=== PATIENT | male | born 1945 | race Caucasian/White ===

== ENCOUNTER → 2018-04-17 09:30 | Outpatient (CLI) | payer OTHER, SELFPAY | PROVIDERS: PCP Emergency Medicine; Visit Provider Orthopaedic Surgery | DX: M17.11 Unilateral primary osteoarthritis, right knee (principal) | CPT/HCPCS: 20610; 99213; J1040 ==

== ENCOUNTER 2018-05-02 11:28 | Outpatient (RCR) | payer SELFPAY | END 2018-05-02 23:59 | disposition home or self-care (01) | LOC: CR 11:28 | PROVIDERS: PCP Emergency Medicine; Visit Provider Family Medicine | DX: Z51.89 Encounter for other specified aftercare (principal) | CPT/HCPCS: S9472 ==

== ENCOUNTER 2018-05-30 13:16 | Outpatient (RCR) | payer SELFPAY | END 2018-06-01 23:59 | disposition home or self-care (01) | LOC: CR 13:16 | PROVIDERS: PCP Emergency Medicine; Visit Provider Family Medicine | DX: Z51.89 Encounter for other specified aftercare (principal) | CPT/HCPCS: S9472 ==

== ENCOUNTER 2018-07-02 07:00 | Outpatient (RCR) | payer SELFPAY | END 2018-07-02 23:59 | disposition home or self-care (01) | LOC: CR 07:00 | PROVIDERS: PCP Emergency Medicine; Visit Provider Family Medicine | DX: Z51.89 Encounter for other specified aftercare (principal) | CPT/HCPCS: S9472 ==

== ENCOUNTER → 2018-07-17 09:12 | Outpatient (BNVA) | payer OTHER, SELFPAY | PROVIDERS: PCP Emergency Medicine; Visit Provider Orthopaedic Surgery | DX: M17.11 Unilateral primary osteoarthritis, right knee (principal); I10 Essential (primary) hypertension | CPT/HCPCS: 20610; 99211; 99213; J1040 ==

== ENCOUNTER 2018-07-30 07:00 | Outpatient (RCR) | payer SELFPAY | END 2018-08-01 23:59 | disposition home or self-care (01) | LOC: CR 07:00 | PROVIDERS: PCP Emergency Medicine; Visit Provider Family Medicine | DX: Z51.89 Encounter for other specified aftercare (principal) | CPT/HCPCS: S9472 ==

== ENCOUNTER 2018-09-01 12:47 | Outpatient (RCR) | payer SELFPAY | END 2018-09-01 23:59 | disposition home or self-care (01) | LOC: CR 12:47 | PROVIDERS: PCP Emergency Medicine; Visit Provider Family Medicine | DX: Z51.89 Encounter for other specified aftercare (principal) | CPT/HCPCS: S9472 ==

== ENCOUNTER 2018-10-01 07:00 | Outpatient (RCR) | payer SELFPAY | END 2018-10-02 23:59 | disposition home or self-care (01) | LOC: CR 07:00 | PROVIDERS: PCP Emergency Medicine; Visit Provider Family Medicine | DX: Z51.89 Encounter for other specified aftercare (principal) | CPT/HCPCS: S9472 ==

== ENCOUNTER → 2018-10-14 09:38 | Outpatient (BNVA) | payer OTHER, SELFPAY | PROVIDERS: PCP Emergency Medicine; Referring Provider Emergency Medicine; Visit Provider Orthopaedic Surgery | DX: M17.11 Unilateral primary osteoarthritis, right knee (principal) | CPT/HCPCS: 20610; 99211; 99213; J7325 ==

== ENCOUNTER 2018-10-29 07:00 | Outpatient (RCR) | payer SELFPAY | END 2018-10-30 23:59 | disposition home or self-care (01) | LOC: CR 07:00 | PROVIDERS: PCP Emergency Medicine; Visit Provider Family Medicine | DX: Z51.89 Encounter for other specified aftercare (principal) | CPT/HCPCS: S9472 ==

== ENCOUNTER 2018-11-28 12:44 | Outpatient (RCR) | payer SELFPAY | END 2018-11-30 23:59 | disposition home or self-care (01) | LOC: CR 12:44 | PROVIDERS: PCP Emergency Medicine; Visit Provider Family Medicine | DX: Z51.89 Encounter for other specified aftercare (principal) | CPT/HCPCS: S9472 ==

== ENCOUNTER 2018-12-29 11:50 | Outpatient (RCR) | payer SELFPAY | END 2018-12-30 23:59 | disposition home or self-care (01) | LOC: CR 11:50 | PROVIDERS: PCP Emergency Medicine; Visit Provider Family Medicine | DX: Z51.89 Encounter for other specified aftercare (principal) | CPT/HCPCS: S9472 ==

== ENCOUNTER → 2019-01-13 09:12 | Outpatient (BNVA) | payer OTHER, SELFPAY | PROVIDERS: PCP Emergency Medicine; Referring Provider Emergency Medicine; Visit Provider Orthopaedic Surgery | DX: M17.11 Unilateral primary osteoarthritis, right knee (principal) | CPT/HCPCS: 20610; 99211; 99212; J1040 ==

== ENCOUNTER 2019-01-30 11:56 | Outpatient (RCR) | payer SELFPAY | END 2019-01-30 23:59 | disposition home or self-care (01) | LOC: CR 11:56 | PROVIDERS: PCP Emergency Medicine; Visit Provider Family Medicine | DX: Z51.89 Encounter for other specified aftercare (principal) | CPT/HCPCS: S9472 ==

== ENCOUNTER 2019-02-27 11:28 | Outpatient (RCR) | payer SELFPAY | END 2019-03-01 23:59 | disposition home or self-care (01) | LOC: CR 11:28 | PROVIDERS: PCP Emergency Medicine; Visit Provider Family Medicine | DX: Z51.89 Encounter for other specified aftercare (principal) | CPT/HCPCS: S9472 ==

== ENCOUNTER 2019-03-02 08:05 | Outpatient (CLI) | payer OTHER, SELFPAY ==
[2019-03-02 09:42] LABS: CREATININE 0.77 mg/dL (0.70-1.30); Calculated LDL 121 mg/dL; Cholesterol 193 mg/dL (50-200); HDL Cholesterol 66 mg/dL (40-60); Triglyceride 30 mg/dL (30-150)
== END 2019-03-02 08:25 ==
PROVIDERS: Nurse Practitioner Family; PCP Emergency Medicine; Visit Provider Emergency Medicine
DX: E78.5 Hyperlipidemia, unspecified (principal); M54.30 Sciatica, unspecified side
CPT/HCPCS: 36415; 80061; 83721; 82565

== ENCOUNTER 2019-03-04 00:49 | Outpatient (CLI) | payer OTHER, SELFPAY ==
[2019-03-04] MEDS: Normal Saline Flush 10 ML SYR IVP (09:40)
[2019-03-04] MEDS: Gadoterate meglumine 20 ML VIAL IVP (09:41)
--- NOTE | 2019-03-04 09:56 | DI.MRI_ITS ---
SYMPTOM/DIAGNOSIS: SCIATICA, H/O LAMINECTOMY LUMBAR SPINE MRI: T 2 sagittal, T 1 sagittal, T 1 sagittal STIR, T 1 sagittal fat sat, T 1 axial fat sat, T 1 axial, T 2 axial and T 1 sagittal fat sat and T 1 axial fat sat post sequences were performed. The examination is compared with a prior study of 09/23/15. Diminished disc signal is noted at all levels and multi level disc space narrowing is identified. At L 1-2, there is a mild disc bulge. No focal herniation is seen. Facet joint DJD is evident and there is perhaps mild central spinal stenosis. No significant foraminal stenosis is identified. At L 2-3, again noted is a disc bulge. No marielos herniation is identified. Facet joint DJD is evident. There is no significant central or neural foraminal stenosis. At L 3-4, a disc bulge is identified. Degenerative bony changes are seen and facet joint DJD is apparent. Also there is some prominence of the ligamentum flavum. There is no evidence of significant central or foraminal stenosis. At L 4-5, a disc bulge is identified. No focal disc herniation is seen. There are severe facet joint degenerative changes at this level and prominence of the ligamentum flavum is noted resulting in moderate central and bilateral foraminal stenosis, right more severe than left. At L 5-S 1, a small disc bulge is apparent. There are severe facet joint degenerative changes and no evidence of a focal disc herniation. There is no evidence of significant foraminal stenosis at this level. SUMMARY: Findings consistent with degenerative disc disease and DJD with evidence of spinal stenosis, most prominent at L 4-5. There has been little interval change when compared with a prior examination.
== END 2019-03-04 01:09 ==
PROVIDERS: PCP Emergency Medicine; Visit Provider Nurse Practitioner Family
DX: M51.16 Intervertebral disc disorders with radiculopathy, lumbar region (principal); M47.27 Other spondylosis with radiculopathy, lumbosacral region; M48.07 Spinal stenosis, lumbosacral region
CPT/HCPCS: 72158

== ENCOUNTER 2019-03-23 14:45 | Outpatient (CLI) | payer OTHER, SELFPAY ==
--- NOTE | 2019-03-23 14:03 | DI.RAD_ITS ---
SYMPTOM/DIAGNOSIS: KNEE PAIN LEFT KNEE: Three views. No priors. There is moderate narrowing of the lateral femoral tibial joint space. There is periarticular spurring seen in the lateral femoral tibial joint and patella femoral joint. A small suprapatellar joint effusion is seen. The bones are intact and normally mineralized. Vascular calcifications are present in the soft tissues IMPRESSION: Mild degenerative changes of the left knee.
--- NOTE | 2019-03-23 14:03 | DI.RAD_ITS ---
SYMPTOM/DIAGNOSIS: KNEE PAIN. RIGHT KNEE: Three views. Comparison 12/16/13 Since the prior examination there has been progression of degenerative changes. There is marked narrowing of the lateral femoral tibial joint space. Periarticular spurring is seen involving all three joint compartments. The bones are intact and normally mineralized. There is a suprapatellar joint effusion. Vascular calcifications are present. IMPRESSION: Moderately severe degenerative changes of the right knee.
== END 2019-03-23 15:05 ==
PROVIDERS: PCP Emergency Medicine; Referring Provider Emergency Medicine; Visit Provider Student in an Organized Health Care Education/Training Program
DX: M25.561 Pain in right knee; M25.562 Pain in left knee; M17.0 Bilateral primary osteoarthritis of knee; M54.16 Radiculopathy, lumbar region
CPT/HCPCS: 73562; 99203; 99214

== ENCOUNTER 2019-03-31 08:57 | Outpatient (CLI) | payer OTHER, SELFPAY ==
--- NOTE | 2019-03-31 06:00 | DI.RAD_ITS ---
SYMPTOM/DIAGNOSIS: LUMBAR RADICULOPATHY PAIN CLINIC: Fluoroscopy Time: 55.45 Fluoroscopy was utilized by Dr. Brand during the performance of an epidural steroid injection. Please refer to the procedure report for complete details.
[2019-03-31 09:14] VITALS: BP 103/69; PULSE 65; RESP 18; TEMP 36.1; O2SAT 97
[2019-03-31] MEDS: methylPREDNISolone ACETATE 40 MG/ML VIAL IJ (10:02)
[2019-03-31] MEDS: Omnipaque 240 MG/ML 50 ML BTL IJ (10:04)
[2019-03-31 10:14] VITALS: BP 122/64; PULSE 63; RESP 16; O2SAT 99
--- NOTE | 2019-03-31 10:14 | PDOC.PAIN ---
Pain Clinic Procedure Note Current Active Problems Problem Status Onset Lumbosacral radiculopathy Primary osteoarthritis of left knee CAUDAL EPIDURAL STEROID WITH CATHETER INJECTION PROCEDURE NOTE COMMENTS: He is status-post lumbar surgery and that is why we are using the caudal approach.. KINJAL WILLIAMSON has been referred to the [facility] for lumbar epidural steroid injection. Patient was greeted by the nurse who verified patients name and . Patient was then taken to the fluoroscopy suite. Patient was interviewed and the medical record reviewed. There were no medical, pharmacologic, radiographic, or other structural contraindications to attempting fluoroscopically guided lumbar epidural steroid injection. Risks and expected side effects as well as potential benefits of the procedure were reviewed and voiced concerns addressed. The patient consent form was signed and witnessed. Standard time-out procedure was performed. Patient was placed in the prone position on the fluoroscopy table and automated blood pressure cuff and pulse oximeter applied. The skin entry point for entering/approaching the epidural space at the sacral hiatus and marked. Following thorough chlorhexadine preparation of the skin and draping and 1% lidocaine infiltration of the skin entry point and subcutaneous tissues, a 17 gauge Touhy needle was placed under fluoroscopic guidance and with loss of resistance technique into the epidural space. Needle tip placement and depth were aided and confirmed by fluoroscopy. There was no paresthesia or return of blood or CSF through the needle. An Arrow cath was thread to the L5-S1 level and 1 cc's of Omnipaque 240 was injected with clear epidural spread confirmed with fluoroscopy. 80mg depomedrol was injected. There was not any unusual discomfort expressed. Vital signs were stable throughout the procedure and were as recorded in nursing records. Follow up plans and appointments were discussed.Post procedure instruction was given as documented in nursing records and having met discharge criteria and was discharged from the [facility]. COMMENTS: If this procedure is effective, it can be completed up to 3 time per 12 months.
== END 2019-03-31 09:17 ==
PROVIDERS: PCP Emergency Medicine; Visit Provider Preventive Medicine Occupational Medicine
DX: M54.17 Radiculopathy, lumbosacral region (principal); M17.12 Unilateral primary osteoarthritis, left knee
CPT/HCPCS: 62323; 72100; J1030; Q9967

== ENCOUNTER 2019-04-01 13:36 | Outpatient (RCR) | payer SELFPAY | END 2019-04-01 23:59 | disposition home or self-care (01) | LOC: CR 13:36 | PROVIDERS: PCP Emergency Medicine; Visit Provider Family Medicine | DX: Z51.89 Encounter for other specified aftercare (principal) | CPT/HCPCS: S9472 ==

== ENCOUNTER 2019-05-01 07:00 | Outpatient (RCR) | payer SELFPAY | END 2019-05-02 23:59 | disposition home or self-care (01) | LOC: CR 07:00 | PROVIDERS: PCP Emergency Medicine; Visit Provider Family Medicine | DX: Z51.89 Encounter for other specified aftercare (principal) | CPT/HCPCS: S9472 ==

== ENCOUNTER → 2019-05-18 08:28 | Outpatient (BNVA) | payer OTHER, SELFPAY | PROVIDERS: PCP Emergency Medicine; Referring Provider Emergency Medicine; Visit Provider Student in an Organized Health Care Education/Training Program | DX: M25.561 Pain in right knee (principal); M17.11 Unilateral primary osteoarthritis, right knee; M54.17 Radiculopathy, lumbosacral region; M25.562 Pain in left knee; M17.12 Unilateral primary osteoarthritis, left knee | CPT/HCPCS: 99213 ==

== ENCOUNTER 2019-06-01 07:00 | Outpatient (RCR) | payer SELFPAY | END 2019-06-01 23:59 | disposition home or self-care (01) | LOC: CR 07:00 | PROVIDERS: PCP Emergency Medicine; Visit Provider Family Medicine | DX: Z51.89 Encounter for other specified aftercare (principal) | CPT/HCPCS: S9472 ==

== ENCOUNTER → 2019-06-29 08:20 | Outpatient (BNVA) | payer OTHER, SELFPAY | PROVIDERS: PCP Emergency Medicine; Referring Provider Emergency Medicine; Visit Provider Student in an Organized Health Care Education/Training Program | DX: M25.561 Pain in right knee (principal); M17.12 Unilateral primary osteoarthritis, left knee; M17.11 Unilateral primary osteoarthritis, right knee; M25.562 Pain in left knee | CPT/HCPCS: 99213 ==

== ENCOUNTER 2019-07-01 11:23 | Outpatient (RCR) | payer SELFPAY | END 2019-07-02 23:59 | disposition home or self-care (01) | LOC: CR 11:23 | PROVIDERS: PCP Emergency Medicine; Visit Provider Family Medicine | DX: Z51.89 Encounter for other specified aftercare (principal) | CPT/HCPCS: S9472 ==

== ENCOUNTER 2019-07-27 11:46 | Outpatient (RCR) | payer SELFPAY | END 2019-08-01 23:59 | disposition home or self-care (01) | LOC: CR 11:46 | PROVIDERS: PCP Emergency Medicine; Visit Provider Family Medicine | DX: Z51.89 Encounter for other specified aftercare (principal) | CPT/HCPCS: S9472 ==

== ENCOUNTER 2019-08-11 09:45 | Emergency (ER) | payer OTHER, SELFPAY ==
[2019-08-11 09:49] VITALS: BP 128/63; PULSE 67; RESP 16; TEMP 36.6; O2SAT 98
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
== END 2019-08-11 10:10 | disposition home or self-care (01) ==
LOC: ER 10:16
PROVIDERS: Emergency Provider Emergency Medicine; PCP Emergency Medicine
DX: T22.211A Burn of second degree of right forearm, initial encounter (principal); X15.0XXA Contact with hot stove (kitchen), initial encounter; I10 Essential (primary) hypertension
CPT/HCPCS: 16020

== ENCOUNTER 2019-08-31 14:41 | Outpatient (RCR) | payer SELFPAY | END 2019-09-01 23:59 | disposition home or self-care (01) | LOC: CR 14:41 | PROVIDERS: PCP Emergency Medicine; Visit Provider Family Medicine | DX: Z51.89 Encounter for other specified aftercare (principal) | CPT/HCPCS: S9472 ==

== ENCOUNTER 2019-10-02 07:00 | Outpatient (RCR) | payer SELFPAY | END 2019-10-02 23:59 | disposition home or self-care (01) | LOC: CR 07:00 | PROVIDERS: PCP Emergency Medicine; Visit Provider Family Medicine | DX: Z51.89 Encounter for other specified aftercare (principal) | CPT/HCPCS: S9472 ==

== ENCOUNTER 2019-10-07 02:25 | Outpatient (CLI) | payer OTHER, SELFPAY ==
--- NOTE | 2019-10-07 09:34 | DI.CT_ITS ---
EXAM: CT PELVIC WO CLINICAL HISTORY: right groin pain/workers comp, RT LOWER QUAD PAIN R10.31. TECHNIQUE: Imaging Protocol: Axial computed tomography images with coronal and sagittal reformatted images were created and reviewed. CONTRAST MATERIAL: Oral: No COMPARISON: No exams were available for comparison FINDINGS: Bladder: The urinary bladder is markedly distended. The dome of the bladder is not included on the e xamination. Reproductive organs: Unremarkable. Bowel: No obstruction or bowel wall thickening. Colonic diverticulosis. No evidence of acute diverti culitis. Peritoneal cavity: No ascites, collection or mesenteric inflammatory response. Inguinal: No evidence of an inguinal hernia or adenopathy. Bones: Degenerative changes in the lumbar spine. No acute fracture or dislocation. IMPRESSION: 1. Marked distension of the urinary bladder. 2. No evidence of an inguinal hernia or adenopathy. DATA REPOSITORY: All CT scans at this facility are submitted to the National Radiology Data Registry (NRDR) Dose Index Registry (DIR) with the [employer] (ACR). RADIATION OPTIMIZATION: All CT scans at this facility use at least one of these dose optimization te chniques: automated exposure control; mA and/or kV adjustment per patient size (includes targeted exa ms where dose is matched to clinical indication); or iterative reconstruction.
== END 2019-10-07 02:45 ==
PROVIDERS: PCP Emergency Medicine; Visit Provider Surgery
DX: R10.31 Right lower quadrant pain (principal); N32.89 Other specified disorders of bladder; K57.30 Diverticulosis of large intestine without perforation or abscess without bleeding
CPT/HCPCS: 72192

== ENCOUNTER 2019-10-28 11:15 | Outpatient (RCR) | payer SELFPAY | END 2019-10-31 23:59 | disposition home or self-care (01) | LOC: CR 11:15 | PROVIDERS: PCP Emergency Medicine; Visit Provider Family Medicine | DX: Z51.89 Encounter for other specified aftercare (principal) | CPT/HCPCS: S9472 ==

== ENCOUNTER 2019-11-06 13:38 | Outpatient (RCR) | payer SELFPAY | END 2019-12-01 23:59 | disposition home or self-care (01) | LOC: CR 13:38 | PROVIDERS: PCP Emergency Medicine; Visit Provider Family Medicine | DX: Z51.89 Encounter for other specified aftercare (principal) | CPT/HCPCS: S9472 ==

== ENCOUNTER 2020-03-07 02:07 | Outpatient (CLI) | payer OTHER, SELFPAY ==
[2020-03-07 10:19] LABS: Anion Gap 9.4 mmol/L (3-11); BUN 13 mg/dL (7-18); CO2 24.6 mmol/L (21.0-32.0); CREATININE 0.83 mg/dL (0.70-1.30); Calcium 8.5 mg/dL (8.5-10.1); Chloride 102 mmol/L (98-107); Cholesterol 183 mg/dL (<200); Glucose 100 mg/dL (74-106); HDL Cholesterol 75 mg/dL (40-60); Potassium 4.4 mmol/L (3.5-5.1); Sodium 136 mmol/L (136-145)
[2020-03-07 10:33] LABS: Triglyceride < 25 mg/dL (<150)
[2020-03-07 10:44] LABS: LDL CHOLESTEROL 95 mg/dL (<100)
== END 2020-03-07 02:27 ==
PROVIDERS: PCP Emergency Medicine; Visit Provider Emergency Medicine
DX: I10 Essential (primary) hypertension (principal); Z95.828 Presence of other vascular implants and grafts; Y78.8 Miscellaneous radiological devices associated with adverse incidents, not elsewhere classified
CPT/HCPCS: 36415; 80048; 80061; 83721

== ENCOUNTER 2021-02-28 08:00 | Outpatient (RCR) | payer SELFPAY ==
[2021-01-31 11:03] VITALS: BP 148/80; PULSE 96
[2021-02-02 08:07] VITALS: BP 121/78; PULSE 80
[2021-02-07 08:03] VITALS: BP 121/76; PULSE 73
[2021-02-09 07:58] VITALS: BP 151/80; PULSE 84
[2021-02-14 08:05] VITALS: BP 126/80; PULSE 85
[2021-02-16 08:00] VITALS: BP 110/72; PULSE 78
[2021-02-21 08:00] VITALS: BP 122/67; PULSE 68
[2021-02-23 08:02] VITALS: BP 115/75; PULSE 71
[2021-02-28 08:04] VITALS: BP 125/80; PULSE 70
== END 2021-03-01 23:59 | disposition home or self-care (01) ==
LOC: CR 08:00
PROVIDERS: PCP Emergency Medicine; Visit Provider Family Medicine
DX: Z51.89 Encounter for other specified aftercare (principal)

== ENCOUNTER 2021-03-28 08:00 | Outpatient (RCR) | payer OTHER, SELFPAY ==
[2021-03-02 00:25] VITALS: BP 125/80; PULSE 70
[2021-03-02 08:06] VITALS: BP 111/72; PULSE 65
[2021-03-07 08:05] VITALS: BP 136/83; PULSE 64; O2SAT 96
[2021-03-09 08:00] VITALS: BP 131/72
[2021-03-14 08:08] VITALS: BP 127/64; PULSE 68
[2021-03-21 08:07] VITALS: BP 122/77; PULSE 66
[2021-03-28 07:59] VITALS: BP 119/64; PULSE 65
== END 2021-04-01 23:59 | disposition home or self-care (01) ==
LOC: CR 08:00
PROVIDERS: PCP Emergency Medicine; Visit Provider Family Medicine
DX: Z51.89 Encounter for other specified aftercare (principal)

== ENCOUNTER 2021-05-02 08:00 | Outpatient (RCR) | payer SELFPAY ==
[2021-04-02 00:24] VITALS: BP 119/64; PULSE 65
[2021-04-11 08:42] VITALS: BP 136/77; PULSE 66
[2021-04-13 08:01] VITALS: BP 120/75; PULSE 65
[2021-04-20 08:13] VITALS: BP 115/73; PULSE 65
[2021-05-02 08:12] VITALS: BP 131/80; PULSE 67
== END 2021-05-02 23:59 | disposition home or self-care (01) ==
LOC: CR 08:00
PROVIDERS: PCP Emergency Medicine; Visit Provider Family Medicine

== ENCOUNTER 2021-06-01 08:00 | Outpatient (RCR) | payer SELFPAY ==
[2021-05-03 00:11] VITALS: BP 131/80; PULSE 67
[2021-05-04 08:37] VITALS: BP 152/82; PULSE 69
[2021-05-09 08:07] VITALS: BP 117/63; PULSE 75
[2021-05-11 08:02] VITALS: BP 111/63; PULSE 63
[2021-05-18 08:09] VITALS: BP 125/78; PULSE 65
[2021-05-23 07:59] VITALS: BP 124/85; PULSE 63
[2021-05-25 09:42] VITALS: BP 107/69; PULSE 63
[2021-05-30 08:04] VITALS: BP 129/77; PULSE 68
[2021-06-01 08:21] VITALS: BP 99/80; PULSE 73
[2021-06-06 08:54] VITALS: BP 133/81; PULSE 68
== END 2021-06-01 23:59 | disposition home or self-care (01) ==
LOC: CR 08:00
PROVIDERS: PCP Emergency Medicine; Visit Provider Family Medicine
DX: Z51.89 Encounter for other specified aftercare (principal)

== ENCOUNTER 2021-06-29 08:00 | Outpatient (RCR) | payer SELFPAY ==
[2021-06-02 00:07] VITALS: BP 99/80; PULSE 73
[2021-06-08 08:38] VITALS: BP 129/79; PULSE 66
[2021-06-13 08:14] VITALS: BP 146/79; PULSE 71
[2021-06-15 09:22] VITALS: BP 133/82; PULSE 68
[2021-06-20 08:02] VITALS: BP 124/75; PULSE 66
[2021-06-22 08:03] VITALS: BP 124/78; PULSE 78
[2021-06-27 07:59] VITALS: BP 127/77; PULSE 68
[2021-06-29 08:08] VITALS: BP 127/82; PULSE 73
== END 2021-07-02 23:59 | disposition home or self-care (01) ==
LOC: CR 08:00
PROVIDERS: PCP Emergency Medicine; Visit Provider Family Medicine
DX: Z51.89 Encounter for other specified aftercare (principal); R69 Illness, unspecified

== ENCOUNTER 2021-08-01 08:00 | Outpatient (RCR) | payer SELFPAY ==
[2021-07-03 00:06] VITALS: BP 127/82; PULSE 73
[2021-07-06 08:02] VITALS: BP 122/77; PULSE 70
[2021-07-11 08:09] VITALS: BP 127/79; PULSE 77
[2021-07-13 08:14] VITALS: BP 131/83; PULSE 67
[2021-07-20 08:01] VITALS: BP 120/73; PULSE 65
[2021-07-25 08:03] VITALS: BP 132/79; PULSE 71
[2021-08-01 09:31] VITALS: BP 108/74; PULSE 81
== END 2021-08-01 23:59 | disposition home or self-care (01) ==
LOC: CR 08:00
PROVIDERS: PCP Emergency Medicine; Visit Provider Family Medicine
DX: Z51.89 Encounter for other specified aftercare (principal)

== ENCOUNTER 2021-08-31 08:00 | Outpatient (RCR) | payer SELFPAY ==
[2021-08-02 00:02] VITALS: BP 108/74; PULSE 81
[2021-08-03 08:28] VITALS: BP 120/69; PULSE 71
[2021-08-15 08:42] VITALS: BP 123/78; PULSE 64
[2021-08-24 08:53] VITALS: BP 127/80; PULSE 73
[2021-08-29 08:03] VITALS: BP 115/75; PULSE 66
[2021-08-31 08:52] VITALS: BP 150/71; PULSE 71
== END 2021-09-01 23:59 | disposition home or self-care (01) ==
LOC: CR 08:00
PROVIDERS: PCP Emergency Medicine; Visit Provider Family Medicine
DX: Z51.89 Encounter for other specified aftercare (principal); R69 Illness, unspecified

== ENCOUNTER 2021-09-04 23:51 | Outpatient (RCR) | payer SELFPAY | END 2021-09-28 16:30 | LOC: CR 23:51 | PROVIDERS: PCP Emergency Medicine; Visit Provider Family Medicine | DX: R69 Illness, unspecified (principal) ==

== ENCOUNTER 2021-11-28 08:00 | Outpatient (RCR) | payer SELFPAY ==
[2021-10-31 08:13] VITALS: BP 93/64; PULSE 83
[2021-11-02 08:14] VITALS: BP 106/54; PULSE 72
[2021-11-07 08:05] VITALS: BP 103/59; PULSE 66
[2021-11-09 08:05] VITALS: BP 106/60; PULSE 66
[2021-11-14 08:18] VITALS: BP 119/63; PULSE 61
[2021-11-16 08:14] VITALS: BP 111/61; PULSE 66
[2021-11-23 08:07] VITALS: BP 114/62; PULSE 71
[2021-11-28 08:16] VITALS: BP 116/70; PULSE 64
[2021-11-30 08:00] VITALS: BP 124/67; PULSE 76
== END 2021-11-30 23:59 | disposition home or self-care (01) ==
LOC: CR 08:00
PROVIDERS: PCP Family Medicine; Visit Provider Family Medicine
DX: R69 Illness, unspecified (principal)

== ENCOUNTER 2021-12-28 08:00 | Outpatient (RCR) | payer SELFPAY ==
[2021-12-01 00:16] VITALS: BP 124/67; PULSE 76
[2021-12-05 08:07] VITALS: BP 115/70; PULSE 62
[2021-12-07 08:09] VITALS: BP 114/69; PULSE 71
[2021-12-12 08:14] VITALS: BP 102/61; PULSE 71; O2SAT 98
[2021-12-14 08:18] VITALS: BP 121/62; PULSE 78
[2021-12-19 08:09] VITALS: BP 106/59; PULSE 65
[2021-12-21 08:13] VITALS: BP 114/62; PULSE 66; O2SAT 98
[2021-12-26 08:08] VITALS: BP 114/63; PULSE 71
[2021-12-28 08:13] VITALS: BP 93/59; PULSE 70
== END 2021-12-30 23:59 | disposition home or self-care (01) ==
LOC: CR 08:00
PROVIDERS: PCP Family Medicine; Visit Provider Internal Medicine Cardiovascular Disease
DX: R69 Illness, unspecified (principal)

== ENCOUNTER 2022-01-30 08:23 | Outpatient (RCR) | payer SELFPAY ==
[2021-12-31 00:07] VITALS: BP 93/59; PULSE 70
[2022-01-02 08:23] VITALS: BP 98/66; PULSE 72
[2022-01-04 08:11] VITALS: BP 111/63; PULSE 67
[2022-01-09 08:14] VITALS: BP 117/67; PULSE 68
[2022-01-11 08:00] VITALS: BP 105/63; PULSE 83
[2022-01-16 10:05] VITALS: BP 118/57; PULSE 65
[2022-01-23 08:09] VITALS: BP 104/66; PULSE 74
[2022-01-30 08:00] VITALS: BP 106/64; PULSE 90
== END 2022-01-30 23:59 | disposition home or self-care (01) ==
LOC: CR 08:23
PROVIDERS: PCP Family Medicine; Visit Provider Internal Medicine Cardiovascular Disease
DX: R69 Illness, unspecified (principal)

== ENCOUNTER 2022-03-01 08:00 | Outpatient (RCR) | payer SELFPAY ==
[2022-01-31 00:13] VITALS: BP 106/64; PULSE 90
[2022-02-08 08:15] VITALS: BP 117/64; PULSE 65
[2022-02-13 08:10] VITALS: BP 114/67; PULSE 71
[2022-02-15 08:55] VITALS: BP 103/67; PULSE 75
[2022-02-20 08:07] VITALS: BP 117/68; PULSE 73
[2022-02-22 08:20] VITALS: BP 109/61; PULSE 65
[2022-02-27 08:06] VITALS: BP 99/62; PULSE 69
[2022-03-01 08:20] VITALS: BP 101/63; PULSE 69
== END 2022-03-01 23:59 | disposition home or self-care (01) ==
LOC: CR 08:00
PROVIDERS: PCP Family Medicine; Visit Provider Internal Medicine Cardiovascular Disease
DX: R69 Illness, unspecified (principal)

== ENCOUNTER → 2022-03-21 00:13 | Outpatient (CLI) | payer MEDICARE, SELFPAY ==
--- NOTE | 2022-03-21 07:00 | DI.US_ITS ---
Exam(s) US AAA SCREENING EXAM: US AAA SCREENING CLINICAL HISTORY: prior smoker,screening for cardiovascular condition,z13.6 COMPARISON: CT CT PELVIC WO from 10/07/2019 FINDINGS: Abdominal Aorta: Proximal: 1.5 cm Mid: 2.1 cm Distal: 1.9 cm Iliacs: Right: 1.2 cm Left: 1.1 cm Abnormally distended urinary bladder is noted. This was seen on prior CT. IMPRESSION: No evidence of abdominal aortic aneurysm. Distended urinary bladder. DATA REPOSITORY:
== END ==
PROVIDERS: PCP Family Medicine; Visit Provider Family Medicine
DX: Z13.6 Encounter for screening for cardiovascular disorders (principal); N32.89 Other specified disorders of bladder; F17.200 Nicotine dependence, unspecified, uncomplicated
CPT/HCPCS: 76706

== ENCOUNTER 2022-03-27 08:05 | Outpatient (RCR) | payer SELFPAY ==
[2022-03-06 09:17] VITALS: BP 114/62; PULSE 72
[2022-03-08 08:06] VITALS: BP 108/60; PULSE 70
[2022-03-20 08:03] VITALS: BP 108/65; PULSE 74
[2022-03-22 08:10] VITALS: BP 119/73; PULSE 76
[2022-03-27 08:11] VITALS: BP 111/67; PULSE 69
== END 2022-04-01 23:59 | disposition home or self-care (01) ==
LOC: CR 08:05
PROVIDERS: PCP Family Medicine; Visit Provider Internal Medicine Cardiovascular Disease
DX: R69 Illness, unspecified (principal)

== ENCOUNTER 2022-05-01 08:00 | Outpatient (RCR) | payer SELFPAY ==
[2022-04-02 00:02] VITALS: BP 111/67; PULSE 69
[2022-04-10 09:22] VITALS: BP 108/61; PULSE 69
[2022-04-17 08:50] VITALS: BP 103/62; PULSE 63
[2022-04-24 08:07] VITALS: BP 110/69; PULSE 67
[2022-05-01 08:30] VITALS: BP 103/68; PULSE 64
== END 2022-05-02 23:59 | disposition home or self-care (01) ==
LOC: CR 08:00
PROVIDERS: PCP Family Medicine; Visit Provider Internal Medicine Cardiovascular Disease
DX: R69 Illness, unspecified (principal)

== ENCOUNTER 2022-05-31 08:12 | Outpatient (RCR) | payer SELFPAY ==
[2022-05-03 00:14] VITALS: BP 103/68; PULSE 64
[2022-05-03 08:18] VITALS: BP 106/69; PULSE 69
[2022-05-08 08:04] VITALS: BP 121/74; PULSE 64
[2022-05-10 08:00] VITALS: BP 112/74; PULSE 65
[2022-05-15 08:03] VITALS: BP 104/68; PULSE 64
[2022-05-17 08:01] VITALS: BP 116/77; PULSE 63
[2022-05-22 08:04] VITALS: BP 109/72; PULSE 68
[2022-05-24 08:07] VITALS: BP 110/61; PULSE 69
[2022-05-29 08:18] VITALS: BP 119/62; PULSE 67
[2022-05-31 08:04] VITALS: BP 109/60; PULSE 64
== END 2022-06-01 23:59 | disposition home or self-care (01) ==
LOC: CR 08:12
PROVIDERS: PCP Family Medicine; Visit Provider Internal Medicine Cardiovascular Disease
DX: R69 Illness, unspecified (principal)

== ENCOUNTER 2022-06-28 08:00 | Outpatient (RCR) | payer SELFPAY ==
[2022-06-02 00:08] VITALS: BP 109/60; PULSE 64
[2022-06-19 08:04] VITALS: BP 109/63; PULSE 72
[2022-06-21 08:23] VITALS: BP 109/63; PULSE 69
[2022-06-26 08:08] VITALS: BP 102/62; PULSE 71
[2022-06-28 08:21] VITALS: BP 106/57; PULSE 65
== END 2022-07-02 23:59 | disposition home or self-care (01) ==
LOC: CR 08:00
PROVIDERS: PCP Family Medicine; Visit Provider Internal Medicine Cardiovascular Disease
DX: R69 Illness, unspecified (principal)

== ENCOUNTER 2022-07-31 08:00 | Outpatient (RCR) | payer SELFPAY ==
[2022-07-03 00:16] VITALS: BP 106/57; PULSE 65
[2022-07-03 11:40] VITALS: BP 110/62; PULSE 65
[2022-07-05 08:05] VITALS: BP 120/68; PULSE 59
[2022-07-10 09:07] VITALS: BP 107/66; PULSE 63
[2022-07-12 08:09] VITALS: BP 118/73; PULSE 62
[2022-07-17 09:05] VITALS: BP 108/65; PULSE 67
[2022-07-19 08:04] VITALS: BP 113/61; PULSE 62
[2022-07-24 08:06] VITALS: BP 106/59; PULSE 71
[2022-07-31 08:34] VITALS: BP 111/69; PULSE 63
== END 2022-08-01 23:59 | disposition home or self-care (01) ==
LOC: CR 08:00
PROVIDERS: PCP Family Medicine; Visit Provider Internal Medicine Cardiovascular Disease
DX: R69 Illness, unspecified (principal)

== ENCOUNTER 2022-08-30 08:28 | Outpatient (RCR) | payer SELFPAY ==
[2022-08-02 00:18] VITALS: BP 111/69; PULSE 63
[2022-08-02 09:00] VITALS: BP 117/64; PULSE 65
[2022-08-09 08:00] VITALS: BP 114/66; PULSE 65
[2022-08-16 08:03] VITALS: BP 120/62; PULSE 65
[2022-08-21 08:14] VITALS: BP 101/57; PULSE 61
[2022-08-23 08:10] VITALS: BP 111/61; PULSE 65
[2022-08-28 08:08] VITALS: BP 116/65; PULSE 66
[2022-08-30 08:44] VITALS: BP 117/61; PULSE 73
== END 2022-09-01 23:59 | disposition home or self-care (01) ==
LOC: CR 08:28
PROVIDERS: PCP Family Medicine; Visit Provider Internal Medicine Cardiovascular Disease
DX: R69 Illness, unspecified (principal)

== ENCOUNTER 2022-10-02 08:00 | Outpatient (RCR) | payer SELFPAY ==
[2022-09-02 00:21] VITALS: BP 117/61; PULSE 73
[2022-09-04 08:38] VITALS: BP 104/63; PULSE 59
[2022-09-11 08:07] VITALS: BP 111/65; PULSE 74
[2022-09-13 09:33] VITALS: BP 103/61; PULSE 62
[2022-09-18 08:20] VITALS: BP 111/63; PULSE 56
[2022-09-20 08:08] VITALS: BP 114/66; PULSE 60
[2022-09-25 08:22] VITALS: BP 114/63; PULSE 73
[2022-10-02 08:40] VITALS: BP 104/59; PULSE 72
== END 2022-10-02 23:59 | disposition home or self-care (01) ==
LOC: CR 08:00
PROVIDERS: PCP Family Medicine; Visit Provider Internal Medicine Cardiovascular Disease
DX: R69 Illness, unspecified (principal)

== ENCOUNTER 2022-11-29 08:00 | Outpatient (RCR) | payer SELFPAY ==
[2022-10-31 00:15] VITALS: BP 125/70; PULSE 73
[2022-11-01 08:18] VITALS: BP 122/75; PULSE 74; O2SAT 97
[2022-11-08 08:31] VITALS: BP 114/61; PULSE 69
[2022-11-15 08:07] VITALS: BP 123/74; PULSE 59
[2022-11-20 08:13] VITALS: BP 117/65; PULSE 62
[2022-11-22 08:11] VITALS: BP 97/56; PULSE 66
[2022-11-27 08:01] VITALS: BP 105/65; PULSE 65
[2022-11-29 08:12] VITALS: BP 94/47; PULSE 70
[2022-12-04 08:05] VITALS: BP 110/69; PULSE 63
== END 2022-11-30 23:59 | disposition home or self-care (01) ==
LOC: CR 08:00
PROVIDERS: PCP Family Medicine; Visit Provider Internal Medicine Cardiovascular Disease

== ENCOUNTER 2022-12-25 08:26 | Outpatient (RCR) | payer SELFPAY ==
[2022-12-01 00:08] VITALS: BP 94/47; PULSE 70
[2022-12-06 08:05] VITALS: BP 114/66; PULSE 61
[2022-12-11 08:08] VITALS: BP 106/61; PULSE 69
[2022-12-18 07:58] VITALS: BP 118/68; PULSE 62
[2022-12-20 08:30] VITALS: BP 113/66; PULSE 70
[2022-12-25 08:28] VITALS: BP 104/57; PULSE 67
== END 2022-12-30 23:59 | disposition home or self-care (01) ==
LOC: CR 08:26
PROVIDERS: PCP Family Medicine; Visit Provider Internal Medicine Cardiovascular Disease
DX: R69 Illness, unspecified (principal)

== ENCOUNTER 2023-01-29 08:19 | Outpatient (RCR) | payer SELFPAY ==
[2022-12-31 00:05] VITALS: BP 104/57; PULSE 67
[2023-01-01 08:17] VITALS: BP 125/68; PULSE 61
[2023-01-03 08:21] VITALS: BP 117/63; PULSE 63
[2023-01-08 08:05] VITALS: BP 121/72; PULSE 64
[2023-01-10 08:09] VITALS: BP 123/68; PULSE 73
[2023-01-22 08:48] VITALS: BP 107/60; PULSE 61
[2023-01-24 08:36] VITALS: BP 104/57; PULSE 68
[2023-01-29 08:34] VITALS: BP 113/73; PULSE 60
== END 2023-01-30 23:59 | disposition home or self-care (01) ==
LOC: CR 08:19
PROVIDERS: PCP Family Medicine; Visit Provider Internal Medicine Cardiovascular Disease

== ENCOUNTER 2023-02-22 01:18 | Outpatient (CLI) | payer MEDICARE, SELFPAY ==
[2023-02-22 13:03] LABS: ALT 21 U/L (16-63); Anion Gap 9.5 mmol/L (3-11); BUN 19 mg/dL (7-18); CO2 26.5 mmol/L (21.0-32.0); CREATININE 0.9 mg/dL (0.70-1.30); Calcium 8.7 mg/dL (8.5-10.1); Calculated LDL 112 mg/dL (<100); Chloride 103 mmol/L (98-107); Cholesterol 184 mg/dL (<200); Estimated GFR 87.96 (mL/min/1.73m2); Glucose 89 mg/dL (74-106); HDL Cholesterol 67 mg/dL (40-60); Potassium 4.3 mmol/L (3.5-5.1); Sodium 139 mmol/L (136-145); Triglyceride 25 mg/dL (<150)
== END 2023-02-22 01:19 | disposition home or self-care (01) ==
LOC: LOS 01:19
PROVIDERS: PCP Family Medicine; Visit Provider Family Medicine
DX: I25.10 Atherosclerotic heart disease of native coronary artery without angina pectoris (principal); E78.5 Hyperlipidemia, unspecified; I10 Essential (primary) hypertension
CPT/HCPCS: 36415; 80048; 80061; 84460

== ENCOUNTER 2023-02-28 08:05 | Outpatient (RCR) | payer SELFPAY ==
[2023-01-31 00:14] VITALS: BP 113/73; PULSE 60
[2023-02-05 08:00] VITALS: BP 137/64; PULSE 66
[2023-02-07 08:08] VITALS: BP 94/64; PULSE 72
[2023-02-12 08:25] VITALS: BP 101/56; PULSE 60
[2023-02-14 08:46] VITALS: BP 118/63; PULSE 62
[2023-02-21 08:12] VITALS: BP 113/60; PULSE 62
[2023-02-26 08:27] VITALS: BP 106/67; PULSE 91
[2023-02-28 10:30] VITALS: BP 111/62; PULSE 66
== END 2023-03-01 23:59 | disposition home or self-care (01) ==
LOC: CR 08:05
PROVIDERS: PCP Family Medicine; Visit Provider Internal Medicine Cardiovascular Disease
DX: R69 Illness, unspecified (principal)

== ENCOUNTER 2023-03-28 08:06 | Outpatient (RCR) | payer SELFPAY ==
[2023-03-02 00:17] VITALS: BP 111/62; PULSE 66
[2023-03-07 08:03] VITALS: BP 105/58; PULSE 62
[2023-03-12 08:12] VITALS: BP 102/57; PULSE 56
[2023-03-19 08:20] VITALS: BP 109/67; PULSE 63
[2023-03-21 08:04] VITALS: BP 103/60; PULSE 62
[2023-03-26 08:22] VITALS: BP 103/62; PULSE 68
[2023-03-28 08:20] VITALS: BP 108/66; PULSE 61
== END 2023-04-01 23:59 | disposition home or self-care (01) ==
LOC: CR 08:06
PROVIDERS: PCP Family Medicine; Visit Provider Internal Medicine Cardiovascular Disease
DX: R69 Illness, unspecified (principal)

== ENCOUNTER 2023-05-02 08:06 | Outpatient (RCR) | payer SELFPAY ==
[2023-04-02 00:15] VITALS: BP 108/66; PULSE 61
[2023-04-02 08:20] VITALS: BP 111/64; PULSE 73
[2023-04-09 08:15] VITALS: BP 103/59; PULSE 70
[2023-04-11 09:36] VITALS: BP 110/64; PULSE 65
[2023-04-16 08:32] VITALS: BP 125/65; PULSE 70
[2023-04-18 08:26] VITALS: BP 95/53; PULSE 61
[2023-04-23 08:03] VITALS: BP 116/60; PULSE 61
[2023-04-25 08:19] VITALS: BP 120/62; PULSE 64
[2023-05-02 08:10] VITALS: BP 109/67; PULSE 71
== END 2023-05-02 23:59 | disposition home or self-care (01) ==
LOC: CR 08:06
PROVIDERS: PCP Family Medicine; Visit Provider Internal Medicine Cardiovascular Disease
DX: R69 Illness, unspecified (principal)

== ENCOUNTER 2023-05-30 08:17 | Outpatient (RCR) | payer SELFPAY ==
[2023-05-03 00:20] VITALS: BP 109/67; PULSE 71
[2023-05-07 08:26] VITALS: BP 108/62; PULSE 69
[2023-05-09 08:18] VITALS: BP 113/63; PULSE 71
[2023-05-14 08:21] VITALS: BP 112/67; PULSE 67
[2023-05-16 10:22] VITALS: BP 109/56; PULSE 67
[2023-05-21 08:12] VITALS: BP 118/65; PULSE 74
[2023-05-23 08:10] VITALS: BP 113/70; PULSE 70
[2023-05-28 08:22] VITALS: BP 123/65; PULSE 69
[2023-05-30 08:23] VITALS: BP 107/66; PULSE 63
[2023-06-06 08:25] VITALS: BP 118/62; PULSE 64
== END 2023-06-01 23:59 | disposition home or self-care (01) ==
LOC: CR 08:17
PROVIDERS: PCP Family Medicine; Visit Provider Internal Medicine Cardiovascular Disease
DX: R69 Illness, unspecified (principal)

== ENCOUNTER 2023-07-02 08:11 | Outpatient (RCR) | payer SELFPAY ==
[2023-06-02 00:17] VITALS: BP 107/66; PULSE 63
[2023-06-04 08:08] VITALS: BP 115/58; PULSE 71
[2023-06-11 08:20] VITALS: BP 132/69; PULSE 67
[2023-06-13 08:36] VITALS: BP 112/62; PULSE 66
[2023-06-18 08:07] VITALS: BP 110/59; PULSE 69
[2023-06-20 08:28] VITALS: BP 102/60; PULSE 70
[2023-06-25 08:35] VITALS: BP 116/65; PULSE 72
[2023-06-27 08:08] VITALS: BP 115/60; PULSE 59
[2023-07-02 08:19] VITALS: BP 117/63; PULSE 60
== END 2023-07-02 23:59 | disposition home or self-care (01) ==
LOC: CR 08:11
PROVIDERS: PCP Family Medicine; Visit Provider Internal Medicine Cardiovascular Disease
DX: R69 Illness, unspecified (principal)

== ENCOUNTER 2023-08-01 08:02 | Outpatient (RCR) | payer SELFPAY ==
[2023-07-03 00:21] VITALS: BP 107/66; PULSE 63
[2023-07-04 08:19] VITALS: BP 114/66; PULSE 72
[2023-07-09 08:11] VITALS: BP 112/64; PULSE 64
[2023-07-16 08:28] VITALS: BP 115/58; PULSE 65
[2023-07-18 08:07] VITALS: BP 117/61; PULSE 60
[2023-07-23 08:20] VITALS: BP 116/59; PULSE 68
[2023-07-30 08:18] VITALS: BP 122/67; PULSE 69
[2023-08-01 08:19] VITALS: BP 123/59; PULSE 67
== END 2023-08-01 23:59 | disposition home or self-care (01) ==
LOC: CR 08:02
PROVIDERS: PCP Family Medicine; Visit Provider Internal Medicine Cardiovascular Disease
DX: R69 Illness, unspecified (principal)

== ENCOUNTER 2023-08-29 08:05 | Outpatient (RCR) | payer SELFPAY ==
[2023-08-02 00:25] VITALS: BP 107/66; PULSE 63
[2023-08-06 08:00] VITALS: BP 138/64; PULSE 79
[2023-08-08 08:13] VITALS: BP 114/62; PULSE 61
[2023-08-13 08:25] VITALS: BP 124/69; PULSE 69
[2023-08-15 11:24] VITALS: BP 121/64; PULSE 65
[2023-08-20 08:21] VITALS: BP 116/63; PULSE 82
[2023-08-22 08:04] VITALS: BP 105/58; PULSE 61
[2023-08-27 08:50] VITALS: BP 110/64; PULSE 62
[2023-08-29 08:11] VITALS: BP 116/59; PULSE 72
== END 2023-09-01 23:59 | disposition home or self-care (01) ==
LOC: CR 08:05
PROVIDERS: PCP Family Medicine; Visit Provider Internal Medicine Cardiovascular Disease
DX: R69 Illness, unspecified (principal)

== ENCOUNTER → 2023-09-18 11:11 | Outpatient (BNVA) | payer MEDICARE, SELFPAY | PROVIDERS: PCP Family Medicine; Referring Provider Family Medicine; Visit Provider Surgery | DX: Z12.11 Encounter for screening for malignant neoplasm of colon (principal) ==

== ENCOUNTER 2023-09-23 09:55 | Day surgery (SDC) | payer MEDICARE, SELFPAY ==
--- NOTE | 2023-09-22 15:00 | W.PM.DSUDISC ---
Date of service: 09/23/23 Time of Service: 12:36 Discharge Plan Disposition Patient Disposition: Home Condition: Good Discharge Details Reason For Visit: screening colonoscopy Attending Provider: Henry Odell Primary Care Provider: Ladi Stringer Home Meds and New Rx's Prescriptions: Continued metoprolol succinate 25 mg tablet extended release 24 hr 12.5 mg PO DAILY Qty: 45 4RF multivitamin 1 EACH tablet 1 ea PO QAM aspirin [Aspir-81] 81 MG tablet,delayed release (DR/EC) 81 mg PO DAILY nitroglycerin 0.4 MG tablet, sublingual 0.4 mg Sublingual PRN Qty: 25 Patient Comments: 04/09/14 Pt states not taken since [place] 08/25/06. PG 01/19/16 pt reports has never needed to use. bmr 01/25/16 pt reports has never needed to use. bmr acetaminophen 650 MG tablet 650 mg PO daily prn Estrella-C with Bioflavonoids 1,000-200 mg tablet 1 tab PO DAILY cod liver oil capsule 2 cap PO DAILY Discontinued polyethylene glycol 3350 17 gram/dose powder 238 g PO ONCE Qty: 238 0RF Rx Instructions: take per colonoscopy instructions bisacodyl [Dulcolax (bisacodyl)] 5 mg tablet,delayed release (DR/EC) 5 mg PO ONCE Qty: 4 0RF Rx Instructions: take per colonoscopy instructions Discharge Instructions Instructions: Diverticulosis (GEN), Colorectal Polyps (GEN), Diverticulosis Diet (GEN) Additional Instructions: Kieran, we were able to complete your colonoscopy today without any difficulty. I did find 3 polyps. All were quite small, and I removed them all completely. Incidentally, you have a little bit of diverticulosis as well. Diverticula are weak spots in the colon wall that typically accumulate as we get older. They can become infected and inflamed, and during those times, patient should be treated with antibiotics. Have provided some general information here regarding typical approaches to diverticular disease. With regards to the polyps, the pathology report will be sent to me in about a week or so. When I have the details regarding the nature of the polyps, I will be in touch with my recommendations for your next colonoscopy. If you have any questions in the meantime, please do not hesitate to call at any point. 1. If tolerated, consume a soft, low fiber diet for 1-2 days. 2[address] Do not drive, drink alcohol, operate machinery, make critical decisions, or do activities that require coordination or balance for 24 hours. 3. Because air was put into your colon during the procedure, expelling air from your rectum (passing gas or farting) is normal. 4. You may not have a bowel movement for 1-3 days because of the colonoscopy prep. This is normal. 5. Go directly to the emergency room if you notice any of the following: Develop chills (warm to touch), or if you have a thermometer and your temperature is above 101 Difficulty breathing or difficultly swallowing Persistent vomiting Severe abdominal pain, other than gas cramps Severe chest pain Black, tarry stools Any bleeding ? exceeding one tablespoon 6. Call your physician if the site where your intravenous was started becomes red, swollen, painful, and warm to touch. 7. Your physician has reviewed your pre-procedure medications. Please continue to take those medications as previously ordered. You will be given specific information/education regarding any changes to your medications before leaving. Activity:: Activity as Tolerated Diet:: As Tolerated Discharge Orders Discharge Orders: Discharge Order (Routine); Ordered 09/22/23 Ordered By: Henry Odell DS: Diagnosis Discharge Diagnosis (1) Screen for colon cancer: Status: Acute Asessment and Plan: Follow-up on polypectomy results
--- NOTE | 2023-09-22 15:02 | COLE_ITS ---
Date of service: 09/23/23 Time of Service: 12:39 Colonoscopy Report Date of procedure: 09/23/23 Pre-op diagnosis general: screening colonoscopy Post-op diagnosis procedure note: other (Diverticulosis, colorectal polyps) Procedure: Colonoscopy with polypectomy Surgeon: Henry Odell Anesthesia Type: General:No Airway Estimated blood loss (mL): 10 Pathology: other (0.25 cm cecal polyps x 2, 0.25 cm polyp at 75 cm) Complications: None Disposition: same day Indications: Kieran is 78 years old. He needs a screening colonoscopy for routine health maintenance. Prep: Miralax/Dulcolax Procedure Start Time: 11:57 Procedure End Time: 12:13 Retraction Time: 8 Findings: Diverticulosis, 0.25 cm cecal polyps x 2, 0.25 cm polyp at 75 cm Procedure Description: After the induction of monitored anesthetic care, and with the patient in left lateral decubitus position, I began by performing an external anorectal exam.? Perineum and skin were normal, as was the anal verge.? There was no evidence of external hemorrhoids.? Next, I performed a digital rectal exam.? I did not appreciate any abnormal findings.? Next, I advanced a colonoscope into the rectal vault.? I performed retroflexion.? This was normal.? Using insufflation, I then advanced the colonoscope beyond the rectal folds and into the sigmoid colon before advancing towards the cecum.? There was diverticulosis involving the sigmoid colon, extending up to about 85 cm beyond the anus. The scope was noted to be in the cecum by identification of the ileocecal valve and appendiceal orifice.? I then began withdrawing the colonoscope using repeated irrigation as necessary for full evaluation of the colonic mucosa. Within the cecum were 2 polyps. Both were 0.25 cm. They were both flat, and I removed these both with cold forceps without any issue. There was minimal bleeding. Similarly, around 75 cm from the anus was another polyp. This was also flat, and measured about 0.25 cm as well. This was also removed with cold forceps. Once the scope was withdrawn to the level of the rectum, great care was taken to examine portions of the rectal folds.? Finally, the scope was withdrawn and the patient was brought to the same-day surgery recovery unit as the anesthetic wore off. ?The findings and instructions were shared with the patient prior to discharge. [place] Bowel Prep [place] Bowel Prep Right Colon: 3 Left Colon: 3 Transverse Colon: 3 Total Score: 9
[2023-09-23 10:20] VITALS: BP 125/76; PULSE 65; RESP 16; TEMP 36.2; O2SAT 95
[2023-09-23] MEDS: Lactated Ringers 1,000 ML 80 ML IV (10:46)
--- NOTE | 2023-09-23 11:25 | ANES.PREOP_ITS ---
General Info Date of Service Date Performed: 09/23/23 Height: 5 ft 11 in Weight: 117 kg Body Mass Index (BMI): 35.9 Surgical Procedure: Operation Date: 09/23/23 12:05 Proposed Procedure Side Surgeon amanda Odell MD Meds Allergies and Home Medications Allergies Allergy/AdvReac Type Severity Reaction Status Date / Time NSAIDS (Non-Steroidal AdvReac Severe GI Bleeding Verified 09/23/23 10:17 Anti-Inflamma atorvastatin AdvReac Unknown MYALGIA Verified 09/23/23 10:17 pravastatin AdvReac Unknown myalgia Verified 09/23/23 10:17 rosuvastatin AdvReac Unknown myalgia Verified 09/23/23 10:17 simvastatin AdvReac Unknown MYALGIAS Verified 09/23/23 10:17 Home Medication Medication Instructions Recorded aspirin 81 mg tablet,delayed 81 mg PO DAILY 04/13/13 release (Aspir-) multivitamin 1 ea PO QAM 04/13/13 nitroglycerin 0.4 mg sublingual 0.4 mg sublingual PRN ##25 04/13/13 tablet acetaminophen 650 mg 650 mg PO daily prn 05/19/14 tablet,extended release ascorbate calcium-bioflavonoid 1 tab PO DAILY 01/12/19 1,000 mg-200 mg tablet (Estrella-C with Bioflavonoids) cod liver oil 2 cap PO DAILY 02/17/19 metoprolol succinate 25 mg 12.5 mg (1/2 x 25 mg) PO DAILY #45 02/27/23 tablet,extended release 24 hr tabs Current Visit Medications: Current Medications Generic Name Dose Route Start Last Admin Trade Name Gucciq PRN Reason Stop Dose Admin Hyoscyamine Sulfate 0.125 mg 09/22/23 15:03 Hyoscyamine 0.125 Mg Sl/Oral/Chew SL 10/22/23 15:02 DIRECTED PRN Ringer's Solution 1,000 mls @ 80 mls/hr 09/23/23 06:00 09/23/23 10:46 IV 09/23/23 23:59 80 mls/hr INFUSION JAVIER Administration IV Miscellaneous Supplies 1 each 09/23/23 06:00 Iv Access IV 09/23/23 23:59 DIRECTED JAVIER Ondansetron HCl 4 mg 09/22/23 15:03 Ondansetron 4 Mg/2 Ml Vial IVP 10/22/23 15:02 Q4H PRN PRN Nausea / Vomiting Sodium Chloride 0 ml 09/23/23 06:00 Normal Saline Flush 10 Ml Syr IV 09/23/23 23:59 PRN PRN Sodium Chloride 0 ml 09/23/23 06:00 Normal Saline 10 Ml Vial IJ 09/23/23 23:59 DIRECTED PRN Sterile Water 0 ml 09/23/23 06:00 Water,Injection,Sterile 10 Ml Vial IJ 09/23/23 23:59 DIRECTED PRN PFSH Active Problems Active Problems: Problem Status Onset Code Screen for colon cancer Z12.11 Wears hearing aid in both ears Z97.4 Postnasal drip R09.82 Hx of colonic polyp Z86.010 Osteoarthritis of right knee M17.11 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 Sciatica M54.30 Varicose veins of lower extremity I83.90 Seborrheic dermatitis L21.9 Rosacea 09/14/16 L71.9 Hyperlipidemia 04/15/13 E78.5 Chronic sinusitis 08/01/03 J32.9 Medical History Medical History Hx of myocardial infarction (2004) NSTEMI - stent placed History of upper gastrointestinal bleeding (~2013) due to NSAIDs Coronary artery disease About 2006-status post NV, treated with a stent, treated and followed initially by cardiology at [facility] 2018-EF was 50%, no significant abnormality noted History of tobacco use Obesity NV (myocardial infarction) 2005 w/ stenting Essential hypertension Surgical History Surgical History H/O lumbosacral spine surgery (2016) Tonsillectomy and adenoidectomy age 7 Stent placement (~2005) Repair of umbilical hernia (~2007) DR. BARROW Colonoscopy - MAC (09/23/17) Tobacco Smoking/Tobacco Use Status: Former Tobacco Use Passive smoking exposure: Yes Second hand exposure: Yes Alcohol Alcohol Intake: current Alcohol intake frequency: a few times a week Alcohol type: beer and wine Substance Use Substance use: Occasionally Substance use type: marijuana and hallucinogens Vital Signs and Lab Results Vital Signs Most Recent Vital Signs in EMR: Most Recent Vital Signs Temp Pulse Resp BP Pulse Ox 36.2 C L 65 16 125/76 95 09/23/23 10:20 09/23/23 10:20 09/23/23 10:20 09/23/23 10:20 09/23/23 10:20 Lab Results Blood Type / Crossmatch: No Data to Display Complete Blood Count: No Data to Display Complete Metabolic Panel: No Data to Display Liver Function Panel: No Data to Display Coagulation Panel: No Data to Display Cardiac Panel: No Data to Display Arterial Blood Gas: No Data to Display Venous Blood Gas: No Data to Display Pancreas Panel: No Data to Display Thyroid Panel: No Data to Display Infectious Disease: No Data to Display Blood Cultures: No Data to Display Toxicology Panel: No Data to Display Imaging and Studies Imaging and Studies Study information below may be from another EMR and interpreted by another provider. Please see original notes in EMR for more complete details. Echocardiogram Summary: Reviewed Carotid Artery Summary:: Reviewed Anesthesia Assessment and Plan Anesthesia History Personal History: No History of Anesthesia Complications Family History: No Family History of Anesthesia Complications Exercise Tolerance Exercise Tolerance: Metabolic Equivalents>4 Pertinent Negatives Pertinent Negatives: No Symptoms of GERD, No Major Cardiovascular Symptoms or Complaints, No Major Pulmonary Symptoms or Complaints and No History of CVA/TIA Cardiac & Pulmonary Exam Cardiac Exam: Normal S1/S2 Heart Sounds Pulmonary Exam: Clear Bilateral Breath Sounds Implantable Cardiac Device Does patient have a Pacemaker or an ICD?: No Airway Exam Known Difficult Airway: No Mallampati Class: 3 Mouth Opening: Normal (> 3cm) Thyromental Distance: Greater than 3 cm Neck Range of Motion: Full ROM Neck Circumference: Normal Teeth Condition: Normal Dentition ASA Classification ASA Score: ASA 3 Emergency Case?: No NPO Status NPO Status: NPO Clears >2 hours, Solids >8 hours Anesthesia Plan Resuscitation Status: Full Code Anesthesia Technique: General Anesthesia Airway Planned: Natural Airway Monitors Used: Standard Monitors Preoperative Comments:: Pt reports global amnesties event 2018; documentation reviewed
[2023-09-23 11:49] VITALS: BMI 35.9
--- NOTE | 2023-09-23 12:07 | BOWEL_PTH ---
PATIENT: Mona Whittington JR LOC: [facility] U#:[id number] AGE/SX: 78/M ROOM: RE09/23/[address]: Henry Odell MD : 1945 BED: DIS: 09/23/2023 SPEC #: [id number] RECD: 09/23/23 12:40 STATUS: ALEXANDRA REQ #: [id number] RAMAN: 09/23/23 12:[address]: Henry Odell DEPT: Surgical Specimen RECD BY: Aviva Abraham ENTERED: 09/23/23 12:42 SP TYPE: Bowel OTHR DR: Ladi Stringer Tissues: 1 - BIOPSY BOWEL 2 - BIOPSY BOWEL Procedures: GROSS AND MICRO LEVEL 4 Comments: [id number]
[2023-09-23 12:21] VITALS: BP 99/68; PULSE 74; RESP 16; TEMP 36.4; O2SAT 97
--- NOTE | 2023-09-23 12:24 | W.ANESPOSTOP ---
Postoperative Evaluation Date, Time and Location Date Performed: 09/23/23 Time Performed: 12:24 Patient Location: Day Surgery Unit Vital Signs Most Recent Imported Vital Signs: Most Recent Vital Signs Temp Pulse Resp BP Pulse Ox 36.4 C L 74 16 99/68 L 97 09/23/23 12:21 09/23/23 12:21 09/23/23 12:21 09/23/23 12:21 09/23/23 12:21 Pain Score Most Recent Pain Score: Most Recent Pain Score Pain Level 0 09/23/23 12:21 Assessment Mental Status: Awake (Alert & Oriented to Patient Baseline) Airway and Respiratory Function: Patent airway with normal (patient baseline) respiratory exam Cardiovascular Function: Hemodynamically Stable Hydration Status: Adequately Hydrated Nausea & Vomiting: No Nausea or Vomiting Pain: Pt. Denies Any Pain Peripheral Nerve Block: Patient did not receive a nerve block
[2023-09-23 13:09] VITALS: BP 102/70; PULSE 63; RESP 18; TEMP 36.5; O2SAT 99
== END 2023-09-23 13:10 | disposition home or self-care (01) ==
LOC: SUR 09:56
PROVIDERS: PCP Family Medicine; Visit Provider Surgery
PROC: 0DJD8ZZ Inspection of Lower Intestinal Tract, Via Natural or Artificial Opening Endoscopic (ICD-10-PCS; CPT 45378; principal; 2023-09-23 12:00)
DX: Z12.11 Encounter for screening for malignant neoplasm of colon (principal); D12.0 Benign neoplasm of cecum; K57.30 Diverticulosis of large intestine without perforation or abscess without bleeding; Z86.010 Personal history of colon polyps; D12.4 Benign neoplasm of descending colon
CPT/HCPCS: 45380; 88305; J2704

== ENCOUNTER 2023-10-01 08:03 | Outpatient (RCR) | payer SELFPAY ==
[2023-09-02 00:09] VITALS: BP 107/66; PULSE 63
[2023-09-03 08:05] VITALS: BP 112/67; PULSE 61
[2023-09-05 08:02] VITALS: BP 109/61; PULSE 67
[2023-09-10 08:56] VITALS: BP 118/67; PULSE 65
[2023-09-12 11:13] VITALS: BP 123/68; PULSE 75
[2023-09-17 08:39] VITALS: BP 123/66; PULSE 73
[2023-09-19 08:42] VITALS: BP 109/71; PULSE 87
[2023-09-24 08:12] VITALS: BP 109/62; PULSE 68
[2023-09-26 08:20] VITALS: BP 114/60; PULSE 63
[2023-10-01 08:04] VITALS: BP 114/60; PULSE 63
== END 2023-10-02 23:59 | disposition home or self-care (01) ==
LOC: CR 08:03
PROVIDERS: PCP Family Medicine; Visit Provider Internal Medicine Interventional Cardiology
DX: R69 Illness, unspecified (principal)

== ENCOUNTER 2023-10-24 10:21 | Outpatient (CLI) | payer MEDICARE, SELFPAY ==
[2023-10-24 12:23] LABS: Absolute Basophil Count 0.08 10^3/uL (0.0-0.2); Absolute Eosinophil Count 0.11 10^3/uL (0.0-0.7); Absolute Monocyte Count 1.36 10^3/uL (0.1-0.8); Absolute Neutrophil Count 3.75 10^3/uL (1.2-6.7); Basophils % 1.2; Eosinophils % 1.7; HCT 42.5 % (40.0-50.0); HGB 14.2 g/dL (13.5-17.5); Lymphocytes % 18.5; MCHC 33.4 % (32.0-36.0); MCV 90 fL (80-95); MPV 9.8 fL (8.0-11.0); Monocytes % 20.9; Neutrophils % 57.7; Platelet Count 246 10^3/uL (130-400); RBC 4.74 10^6/uL (4.36-5.78); RDW 12.4 % (11.8-14.1); RDW-SD 41.1 fL
[2023-10-24 12:33] LABS: Anion Gap 9.6 mmol/L (3-11); BUN 18 mg/dL (7-18); CO2 24.4 mmol/L (21.0-32.0); CREATININE 0.9 mg/dL (0.70-1.30); Calcium 9.2 mg/dL (8.5-10.1); Chloride 103 mmol/L (98-107); Estimated GFR 87.96 (mL/min/1.73m2); Glucose 111 mg/dL (74-106); Potassium 4.2 mmol/L (3.5-5.1); Sodium 137 mmol/L (136-145)
== END 2023-10-24 10:22 | disposition home or self-care (01) ==
LOC: LOS 10:22
PROVIDERS: PCP Family Medicine; Referring Provider Nurse Practitioner Family; Visit Provider Nurse Practitioner Family
DX: R19.7 Diarrhea, unspecified (principal)
CPT/HCPCS: 36415; 80048; 85025

== ENCOUNTER 2023-10-25 21:10 | Outpatient (REF) | payer MEDICARE, SELFPAY ==
[2023-10-26 13:21] LABS: Campylobacter PCR Positive (Negative); Salmonella PCR Negative (Negative); Shiga Toxin PCR Negative (Negative); Shigella/Enteroinvasive Ecoli Negative (Negative)
== END 2023-10-25 21:11 | disposition home or self-care (01) ==
LOC: LBN 21:10
PROVIDERS: PCP Family Medicine; Visit Provider Nurse Practitioner Family
DX: R19.7 Diarrhea, unspecified (principal)
CPT/HCPCS: 87505; 87177

== ENCOUNTER 2023-10-29 08:06 | Outpatient (RCR) | payer SELFPAY ==
[2023-10-03 00:19] VITALS: BP 107/66; PULSE 63
[2023-10-03 09:11] VITALS: BP 116/64; PULSE 67
[2023-10-08 08:00] VITALS: BP 113/70; PULSE 74
[2023-10-10 09:48] VITALS: BP 110/66; PULSE 60
[2023-10-17 08:06] VITALS: BP 123/64; O2SAT 97
[2023-10-22 08:12] VITALS: BP 101/58; PULSE 74
[2023-10-29 08:15] VITALS: BP 99/58; PULSE 67
== END 2023-10-31 23:59 | disposition home or self-care (01) ==
LOC: CR 08:06
PROVIDERS: PCP Family Medicine; Visit Provider Internal Medicine Cardiovascular Disease
DX: R69 Illness, unspecified (principal)

== ENCOUNTER 2023-11-28 08:04 | Outpatient (RCR) | payer SELFPAY ==
[2023-11-01 00:22] VITALS: BP 107/66; PULSE 63
[2023-11-05 08:31] VITALS: BP 102/62; PULSE 66
[2023-11-07 08:13] VITALS: BP 117/63; PULSE 62
[2023-11-12 08:22] VITALS: BP 112/61; PULSE 66
[2023-11-14 08:00] VITALS: BP 112/57; PULSE 61
[2023-11-19 08:19] VITALS: BP 113/63; PULSE 63
[2023-11-21 08:49] VITALS: BP 127/71; PULSE 73
[2023-11-26 08:20] VITALS: BP 102/64; PULSE 64
[2023-11-28 08:25] VITALS: BP 113/67; PULSE 62
== END 2023-12-01 23:59 | disposition home or self-care (01) ==
LOC: CR 08:04
PROVIDERS: PCP Family Medicine; Visit Provider Internal Medicine Cardiovascular Disease
DX: R69 Illness, unspecified (principal)

== ENCOUNTER 2023-12-31 08:03 | Outpatient (RCR) | payer SELFPAY ==
[2023-12-03 09:38] VITALS: BP 117/72; PULSE 64
[2023-12-10 08:08] VITALS: BP 122/64; PULSE 64
[2023-12-12 08:04] VITALS: BP 102/61; PULSE 63
[2023-12-17 08:05] VITALS: BP 121/66; PULSE 56
[2023-12-19 08:07] VITALS: BP 116/68; PULSE 66
[2023-12-24 08:17] VITALS: BP 106/55; PULSE 56
[2023-12-26 08:07] VITALS: BP 120/57; PULSE 64
[2023-12-31 08:06] VITALS: BP 107/56; PULSE 59
== END 2023-12-31 23:59 | disposition home or self-care (01) ==
LOC: CR 08:03
PROVIDERS: PCP Family Medicine; Visit Provider Internal Medicine Cardiovascular Disease
DX: R69 Illness, unspecified (principal)

== ENCOUNTER 2024-01-30 08:07 | Outpatient (RCR) | payer SELFPAY ==
[2024-01-01 00:12] VITALS: BP 107/56; PULSE 59
[2024-01-02 08:12] VITALS: BP 130/70; PULSE 63; O2SAT 96
[2024-01-07 09:08] VITALS: BP 111/61; PULSE 64
[2024-01-09 10:36] VITALS: BP 116/70; PULSE 70
[2024-01-14 08:17] VITALS: BP 112/67; PULSE 62
[2024-01-16 08:00] VITALS: BP 118/68; PULSE 62
[2024-01-23 08:17] VITALS: BP 122/61; PULSE 74
[2024-01-28 08:31] VITALS: BP 125/72; PULSE 68
[2024-01-30 08:21] VITALS: BP 125/74; PULSE 72
== END 2024-01-31 23:59 | disposition home or self-care (01) ==
LOC: CR 08:07
PROVIDERS: PCP Family Medicine; Visit Provider Internal Medicine Cardiovascular Disease
DX: R69 Illness, unspecified (principal)

== ENCOUNTER 2024-02-27 08:25 | Outpatient (RCR) | payer SELFPAY ==
[2024-02-01 00:06] VITALS: BP 107/56; PULSE 59
[2024-02-04 08:17] VITALS: BP 104/61; PULSE 67
[2024-02-06 08:14] VITALS: BP 111/65; PULSE 64
[2024-02-11 08:37] VITALS: BP 108/61; PULSE 61
[2024-02-13 12:21] VITALS: BP 114/67; PULSE 65
[2024-02-18 08:19] VITALS: BP 126/68; PULSE 67
[2024-02-20 08:11] VITALS: BP 120/69; PULSE 69
[2024-02-25 08:16] VITALS: BP 134/72; PULSE 68
[2024-02-27 09:11] VITALS: BP 132/66; PULSE 65
== END 2024-03-01 23:59 | disposition home or self-care (01) ==
LOC: CR 08:25
PROVIDERS: PCP Family Medicine; Visit Provider Internal Medicine Cardiovascular Disease
DX: R69 Illness, unspecified (principal)

== ENCOUNTER 2024-02-28 01:30 | Outpatient (CLI) | payer MEDICARE, SELFPAY ==
[2024-02-28 11:34] LABS: BUN 18 mg/dL (7-18); CREATININE 0.9 mg/dL (0.70-1.30); Calcium 8.7 mg/dL (8.5-10.1); Calculated LDL 111 mg/dL (<100); Chloride 100 mmol/L (98-107); Cholesterol 182 mg/dL (<200); Estimated GFR 87.42 (mL/min/1.73m2); Glucose 113 mg/dL (74-106); HDL Cholesterol 64 mg/dL (40-60); Potassium 4.4 mmol/L (3.5-5.1); Sodium 135 mmol/L (136-145); Triglyceride 38 mg/dL (<150)
== END 2024-02-28 01:31 | disposition home or self-care (01) ==
PROVIDERS: PCP Family Medicine; Visit Provider Family Medicine
DX: E78.5 Hyperlipidemia, unspecified (principal); Z13.6 Encounter for screening for cardiovascular disorders
CPT/HCPCS: 36415; 80048; 80061

== ENCOUNTER 2024-03-26 08:00 | Outpatient (RCR) | payer SELFPAY ==
[2024-03-02 00:04] VITALS: BP 107/56; PULSE 59
[2024-03-03 08:14] VITALS: BP 126/72; PULSE 65
[2024-03-10 08:25] VITALS: BP 121/65; PULSE 68; O2SAT 96
[2024-03-17 08:08] VITALS: BP 110/65; PULSE 65
[2024-03-24 08:09] VITALS: BP 129/73; PULSE 65
[2024-03-26 08:19] VITALS: BP 123/75; PULSE 67
== END 2024-04-01 23:59 | disposition home or self-care (01) ==
LOC: CR 08:00
PROVIDERS: PCP Family Medicine; Visit Provider Internal Medicine Cardiovascular Disease
DX: R69 Illness, unspecified (principal)

== ENCOUNTER 2024-04-30 08:11 | Outpatient (RCR) | payer SELFPAY ==
[2024-04-02 00:25] VITALS: BP 107/56; PULSE 59
[2024-04-02 08:03] VITALS: BP 110/63; PULSE 63
[2024-04-07 08:17] VITALS: BP 131/73; PULSE 71
[2024-04-09 10:22] VITALS: BP 110/66; PULSE 65
[2024-04-14 08:24] VITALS: BP 131/74; PULSE 67
[2024-04-21 08:49] VITALS: BP 106/74; PULSE 64
[2024-04-23 08:17] VITALS: BP 140/58; PULSE 75
[2024-04-28 09:13] VITALS: BP 114/66; PULSE 76
[2024-04-30 08:06] VITALS: BP 115/70; PULSE 78
== END 2024-05-02 23:59 | disposition home or self-care (01) ==
LOC: CR 08:11
PROVIDERS: PCP Family Medicine; Visit Provider Internal Medicine Cardiovascular Disease
DX: R69 Illness, unspecified (principal)

== ENCOUNTER 2024-05-28 08:09 | Outpatient (RCR) | payer SELFPAY ==
[2024-05-03 00:27] VITALS: BP 107/56; PULSE 59
[2024-05-05 08:24] VITALS: BP 126/58; PULSE 73
[2024-05-07 08:23] VITALS: BP 104/65; PULSE 80
[2024-05-14 09:33] VITALS: BP 122/68; PULSE 65
[2024-05-19 08:37] VITALS: BP 123/71; PULSE 66
[2024-05-21 09:24] VITALS: BP 120/68; PULSE 66
[2024-05-26 08:23] VITALS: BP 102/62; PULSE 68
[2024-05-28 08:23] VITALS: BP 112/65; PULSE 69
== END 2024-06-01 23:59 | disposition home or self-care (01) ==
LOC: CR 08:09
PROVIDERS: PCP Family Medicine; Visit Provider Internal Medicine Cardiovascular Disease
DX: R69 Illness, unspecified (principal)

== ENCOUNTER 2024-07-02 08:43 | Outpatient (RCR) | payer SELFPAY ==
[2024-06-02 00:25] VITALS: BP 107/56; PULSE 59
[2024-06-02 08:04] VITALS: BP 129/76; PULSE 74
[2024-06-04 08:05] VITALS: BP 115/69; PULSE 75; O2SAT 97
[2024-06-09 08:30] VITALS: BP 115/63; PULSE 70
[2024-06-11 09:31] VITALS: BP 117/72; PULSE 72
[2024-06-16 09:03] VITALS: BP 108/68; PULSE 67
[2024-06-18 08:02] VITALS: BP 128/72; PULSE 85; O2SAT 97
[2024-06-23 08:28] VITALS: BP 118/65; PULSE 67
[2024-06-25 08:04] VITALS: BP 113/68; PULSE 80; O2SAT 96
[2024-06-30 08:59] VITALS: BP 121/63; PULSE 65
[2024-07-02 08:11] VITALS: BP 157/72; PULSE 55
== END 2024-07-02 23:59 | disposition home or self-care (01) ==
LOC: CR 08:43
PROVIDERS: PCP Family Medicine; Visit Provider Internal Medicine Cardiovascular Disease
DX: R69 Illness, unspecified (principal)

== ENCOUNTER 2024-07-28 08:14 | Outpatient (RCR) | payer SELFPAY ==
[2024-07-03 00:33] VITALS: BP 107/56; PULSE 59
[2024-07-07 08:11] VITALS: BP 123/67; PULSE 74
[2024-07-09 08:14] VITALS: BP 113/68; PULSE 76
[2024-07-14 08:08] VITALS: BP 128/65; PULSE 66
[2024-07-16 09:08] VITALS: BP 126/68; PULSE 75
[2024-07-21 08:43] VITALS: BP 113/66; PULSE 66
[2024-07-23 08:07] VITALS: BP 126/80; PULSE 80; O2SAT 95
[2024-07-28 08:20] VITALS: BP 116/66; PULSE 75
== END 2024-08-01 23:59 | disposition home or self-care (01) ==
LOC: CR 08:14
PROVIDERS: PCP Family Medicine; Visit Provider Internal Medicine Cardiovascular Disease
DX: R69 Illness, unspecified (principal)

== ENCOUNTER 2024-09-01 08:06 | Outpatient (RCR) | payer SELFPAY ==
[2024-08-02 00:30] VITALS: BP 107/56; PULSE 59
[2024-08-04 08:20] VITALS: BP 130/71; PULSE 86
[2024-08-06 08:05] VITALS: BP 115/61; PULSE 81
[2024-08-11 08:19] VITALS: BP 130/65; PULSE 66
[2024-08-13 12:40] VITALS: BP 124/66; PULSE 81
[2024-08-18 08:08] VITALS: BP 118/67; PULSE 67
[2024-08-20 08:08] VITALS: BP 119/67; PULSE 75
[2024-08-25 08:36] VITALS: BP 113/56; PULSE 86
[2024-09-01 08:12] VITALS: BP 116/58; PULSE 76
== END 2024-09-01 23:59 | disposition home or self-care (01) ==
LOC: CR 08:06
PROVIDERS: PCP Family Medicine; Visit Provider Internal Medicine Cardiovascular Disease
DX: R69 Illness, unspecified (principal)

== ENCOUNTER 2024-10-01 08:05 | Outpatient (RCR) | payer MEDICARE, SELFPAY ==
[2024-09-02 00:30] VITALS: BP 107/56; PULSE 59
[2024-09-03 08:19] VITALS: BP 113/62; PULSE 70
[2024-09-08 08:07] VITALS: BP 110/64; PULSE 67
[2024-09-10 08:18] VITALS: BP 113/65; PULSE 81
[2024-09-15 08:17] VITALS: BP 116/69; PULSE 80
[2024-09-17 08:31] VITALS: BP 128/69; PULSE 81
[2024-09-24 08:07] VITALS: BP 119/71; PULSE 75
[2024-09-29 08:19] VITALS: BP 123/67; PULSE 72
[2024-10-01 08:07] VITALS: BP 126/72; PULSE 74; O2SAT 95
== END 2024-10-02 23:59 | disposition home or self-care (01) ==
LOC: CR 08:05
PROVIDERS: PCP Family Medicine; Visit Provider Internal Medicine Cardiovascular Disease
DX: R69 Illness, unspecified (principal)

== ENCOUNTER 2024-10-27 08:10 | Outpatient (RCR) | payer SELFPAY ==
[2024-10-03 00:10] VITALS: BP 107/56; PULSE 59
[2024-10-06 08:19] VITALS: BP 112/66; PULSE 89
[2024-10-08 08:18] VITALS: BP 117/73; PULSE 69
[2024-10-13 08:11] VITALS: BP 129/76; PULSE 81
[2024-10-15 08:00] VITALS: BP 119/72; PULSE 62; O2SAT 98
[2024-10-20 09:21] VITALS: BP 115/65; PULSE 68
[2024-10-22 08:12] VITALS: BP 117/62; PULSE 74
[2024-10-27 08:12] VITALS: BP 109/68; PULSE 81
== END 2024-10-30 23:59 | disposition home or self-care (01) ==
LOC: CR 08:10
PROVIDERS: PCP Family Medicine; Visit Provider Internal Medicine Cardiovascular Disease
DX: R69 Illness, unspecified (principal)

== ENCOUNTER 2024-11-26 08:17 | Outpatient (RCR) | payer SELFPAY ==
[2024-10-31 00:16] VITALS: BP 107/56; PULSE 59
[2024-11-03 08:48] VITALS: BP 119/69; PULSE 70
[2024-11-05 08:14] VITALS: BP 127/64; PULSE 83
[2024-11-10 08:30] VITALS: BP 123/72; PULSE 72
[2024-11-17 08:26] VITALS: BP 119/72; PULSE 69
[2024-11-19 08:20] VITALS: BP 117/65; PULSE 76
[2024-11-24 08:41] VITALS: BP 117/66; PULSE 70
[2024-11-26 08:00] VITALS: BP 111/67; PULSE 70; O2SAT 96
== END 2024-11-30 23:59 | disposition home or self-care (01) ==
LOC: CR 08:17
PROVIDERS: PCP Family Medicine; Visit Provider Internal Medicine Cardiovascular Disease
DX: R69 Illness, unspecified (principal)

== ENCOUNTER 2024-12-24 08:10 | Outpatient (RCR) | payer SELFPAY ==
[2024-12-01 00:18] VITALS: BP 107/56; PULSE 59
[2024-12-03 08:08] VITALS: BP 116/65; PULSE 70; O2SAT 98
[2024-12-08 08:24] VITALS: BP 140/78; PULSE 86
[2024-12-10 08:10] VITALS: BP 102/55; PULSE 75; O2SAT 98
[2024-12-15 08:45] VITALS: BP 101/55; PULSE 67
[2024-12-17 08:18] VITALS: BP 122/59; PULSE 80
[2024-12-22 09:13] VITALS: BP 122/69; PULSE 64
[2024-12-24 08:27] VITALS: BP 110/67; PULSE 75
== END 2024-12-30 23:59 | disposition home or self-care (01) ==
LOC: CR 08:10
PROVIDERS: PCP Family Medicine; Visit Provider Internal Medicine Cardiovascular Disease
DX: R69 Illness, unspecified (principal)

== ENCOUNTER 2025-01-28 08:18 | Outpatient (RCR) | payer SELFPAY ==
[2024-12-31 00:20] VITALS: BP 107/56; PULSE 59
[2025-01-07 08:13] VITALS: BP 131/76; PULSE 78
[2025-01-12 08:18] VITALS: BP 103/58; PULSE 70
[2025-01-14 08:15] VITALS: BP 119/65; PULSE 62
[2025-01-19 08:16] VITALS: BP 119/62; PULSE 66
[2025-01-21 08:19] VITALS: BP 130/68; PULSE 71
[2025-01-28 09:32] VITALS: BP 119/62; PULSE 73
== END 2025-01-30 23:59 | disposition home or self-care (01) ==
LOC: CR 08:18
PROVIDERS: PCP Family Medicine; Visit Provider Internal Medicine Cardiovascular Disease
DX: R69 Illness, unspecified (principal)

== ENCOUNTER 2025-02-18 09:27 | Outpatient (CLI) | payer MEDICARE, SELFPAY ==
[2025-02-18 10:02] LABS: Anion Gap 9.3 mmol/L (3-11); BUN 19 mg/dL (7-18); CO2 24.7 mmol/L (21.0-32.0); CREATININE 0.8 mg/dL (0.70-1.30); Calcium 8.8 mg/dL (8.5-10.1); Calculated LDL 111 mg/dL (<100); Chloride 103 mmol/L (98-107); Cholesterol 183 mg/dL (<200); Estimated GFR 90.02 (mL/min/1.73m2); Glucose 114 mg/dL (74-106); HDL Cholesterol 65 mg/dL (>or=40); Potassium 4.1 mmol/L (3.5-5.1); Sodium 137 mmol/L (136-145); Triglyceride 37 mg/dL (<150)
[2025-02-19 15:30] LABS: Hemoglobin A1C 5.7 % (<5.7)
== END 2025-02-18 09:28 | disposition home or self-care (01) ==
LOC: LBO 09:33
PROVIDERS: PCP Family Medicine; Visit Provider Family Medicine
DX: Z13.6 Encounter for screening for cardiovascular disorders (principal); E78.5 Hyperlipidemia, unspecified; R73.01 Impaired fasting glucose; E66.9 Obesity, unspecified; I10 Essential (primary) hypertension
CPT/HCPCS: 36415; 80048; 80061; 83036

== ENCOUNTER 2025-02-25 08:00 | Outpatient (RCR) | payer SELFPAY ==
[2025-01-31 00:12] VITALS: BP 107/56; PULSE 59
[2025-02-04 09:10] VITALS: BP 109/62
[2025-02-09 09:22] VITALS: BP 113/74; PULSE 65
[2025-02-11 08:18] VITALS: BP 126/79; PULSE 80
[2025-02-16 08:36] VITALS: BP 144/78; PULSE 78
[2025-02-18 08:22] VITALS: BP 133/75; PULSE 75
[2025-02-23 08:20] VITALS: BP 110/63; PULSE 66
[2025-02-25 08:05] VITALS: BP 120/72; PULSE 67
== END 2025-03-01 23:59 | disposition home or self-care (01) ==
LOC: CR 08:00
PROVIDERS: PCP Family Medicine; Visit Provider Internal Medicine Cardiovascular Disease
DX: R69 Illness, unspecified (principal)

== ENCOUNTER 2025-04-01 08:00 | Outpatient (RCR) | payer SELFPAY ==
[2025-03-02 00:20] VITALS: BP 120/72; PULSE 67
[2025-03-02 08:26] VITALS: BP 109/69; PULSE 71
[2025-03-04 08:12] VITALS: BP 113/69; PULSE 71; O2SAT 98
[2025-03-09 09:13] VITALS: BP 127/71; PULSE 65
[2025-03-11 08:28] VITALS: BP 129/76; PULSE 76
[2025-03-16 08:29] VITALS: BP 128/81; PULSE 71
[2025-03-18 08:10] VITALS: BP 125/68; PULSE 67; O2SAT 98
[2025-03-23 09:11] VITALS: BP 115/65; PULSE 67
[2025-03-25 08:29] VITALS: BP 116/70; PULSE 70
[2025-03-30 08:32] VITALS: BP 126/75; PULSE 73
[2025-04-01 08:31] VITALS: BP 123/70; PULSE 66
== END 2025-04-01 23:59 | disposition home or self-care (01) ==
LOC: CR 08:00
PROVIDERS: PCP Family Medicine; Visit Provider Internal Medicine Cardiovascular Disease
DX: R69 Illness, unspecified (principal)

== ENCOUNTER 2025-04-29 08:00 | Outpatient (RCR) | payer SELFPAY ==
[2025-04-02 00:09] VITALS: BP 123/70; PULSE 66
[2025-04-06 08:21] VITALS: BP 123/61; PULSE 64
[2025-04-08 08:27] VITALS: BP 115/67; PULSE 66
[2025-04-20 08:40] VITALS: BP 126/70; PULSE 70
[2025-04-22 08:47] VITALS: BP 118/61; PULSE 75
[2025-04-27 08:33] VITALS: BP 124/72; PULSE 65
[2025-04-29 08:32] VITALS: BP 117/69; PULSE 69
== END 2025-05-02 23:59 | disposition home or self-care (01) ==
LOC: CR 08:00
PROVIDERS: PCP Family Medicine; Visit Provider Internal Medicine Cardiovascular Disease
DX: R69 Illness, unspecified (principal)

== ENCOUNTER 2025-05-06 14:06 | Outpatient (REF) | payer MEDICARE, SELFPAY ==
[2025-05-06 23:05] LABS: Campylobacter PCR Negative (Negative); Shiga Toxin PCR Negative (Negative); Shigella/Enteroinvasive Ecoli Negative (Negative)
== END 2025-05-06 14:07 | disposition home or self-care (01) ==
LOC: LBN 14:06
PROVIDERS: PCP Family Medicine; Visit Provider Nurse Practitioner Family
DX: R19.7 Diarrhea, unspecified (principal)
CPT/HCPCS: 87015; 87269; 87272; 87505

== ENCOUNTER 2025-06-01 08:00 | Outpatient (RCR) | payer SELFPAY ==
[2025-05-06 08:30] VITALS: BP 122/72; PULSE 77
[2025-05-11 08:17] VITALS: BP 123/64; PULSE 63
[2025-05-13 08:21] VITALS: BP 128/67; PULSE 64
[2025-05-18 08:28] VITALS: BP 109/70; PULSE 63
[2025-05-20 09:13] VITALS: BP 137/77; PULSE 65
[2025-05-25 08:15] VITALS: BP 109/63; PULSE 62
[2025-05-27 08:15] VITALS: BP 131/66; PULSE 67
[2025-06-01 08:07] VITALS: BP 118/63; PULSE 62
== END 2025-06-01 23:59 | disposition home or self-care (01) ==
LOC: CR 08:00
PROVIDERS: PCP Family Medicine; Visit Provider Internal Medicine Cardiovascular Disease
DX: R69 Illness, unspecified (principal)

== ENCOUNTER 2025-07-01 08:00 | Outpatient (RCR) | payer SELFPAY ==
[2025-06-02 00:09] VITALS: BP 118/63; PULSE 62
[2025-06-08 08:23] VITALS: BP 156/76; PULSE 85
[2025-06-15 09:24] VITALS: BP 113/60; PULSE 72
[2025-06-17 08:10] VITALS: BP 127/63; PULSE 77
[2025-06-22 08:12] VITALS: BP 114/61; PULSE 84
[2025-06-24 08:20] VITALS: BP 127/76; PULSE 83
[2025-06-29 08:46] VITALS: BP 112/69; PULSE 71
[2025-07-01 08:11] VITALS: BP 111/63; PULSE 63; O2SAT 96
== END 2025-07-02 23:59 | disposition home or self-care (01) ==
LOC: CR 08:00
PROVIDERS: PCP Family Medicine; Visit Provider Internal Medicine Cardiovascular Disease
DX: R69 Illness, unspecified (principal)

== ENCOUNTER 2025-07-27 08:00 | Outpatient (RCR) | payer SELFPAY ==
[2025-07-03 00:05] VITALS: BP 111/63; PULSE 63
[2025-07-06 08:16] VITALS: BP 119/63; PULSE 61
[2025-07-08 08:15] VITALS: BP 118/68; PULSE 64
[2025-07-13 08:12] VITALS: BP 95/54; PULSE 64
[2025-07-15 08:13] VITALS: BP 122/64; PULSE 64
[2025-07-22 08:16] VITALS: BP 119/69; PULSE 78
[2025-07-27 08:36] VITALS: BP 109/63; PULSE 63
== END 2025-08-01 23:59 | disposition home or self-care (01) ==
LOC: CR 08:00
PROVIDERS: PCP Family Medicine; Visit Provider Internal Medicine Cardiovascular Disease
DX: R69 Illness, unspecified (principal)

== ENCOUNTER 2025-08-24 08:00 | Outpatient (RCR) | payer SELFPAY ==
[2025-08-02 00:05] VITALS: BP 109/63; PULSE 63
[2025-08-03 08:15] VITALS: BP 118/66; PULSE 68
[2025-08-05 08:27] VITALS: BP 115/67; PULSE 74
[2025-08-10 08:40] VITALS: BP 131/67; PULSE 85
[2025-08-12 08:48] VITALS: BP 109/64; PULSE 82
[2025-08-17 08:18] VITALS: BP 119/67; PULSE 68
[2025-08-19 08:25] VITALS: BP 105/71; PULSE 74
[2025-08-24 08:38] VITALS: BP 118/58; PULSE 71
== END 2025-09-01 23:59 | disposition home or self-care (01) ==
LOC: CR 08:00
PROVIDERS: PCP Family Medicine; Visit Provider Internal Medicine Cardiovascular Disease
DX: R69 Illness, unspecified (principal)